=== PATIENT | female | born 1935 | race Caucasian/White ===

== ENCOUNTER 2016-05-06 03:28 | Inpatient (IN) | payer OTHER ==
[~2016-05-06] VITALS: Ht 160 cm; Wt 61.7 kg
[2016-05-06] MEDS ORDERED: METHIMAZOLE5 M1 PO (09:29)
[2016-05-06] MEDS ORDERED: IRBESARTAN300 M1 PO (09:31)
[2016-05-06] MEDS ORDERED: ASPIRIN EC325 M2 PO (10:31)
[2016-05-06] MEDS ORDERED: MIRALAX17 G1 PO (10:31)
[2016-05-06] MEDS ORDERED: PRILOSEC OTC20 M1 PO (10:31)
[2016-05-06] MEDS ORDERED: COLACE100 M1 PO (10:31)
[2016-05-06] MEDS ORDERED: DILAUDID2 M1 PO (10:31)
--- NOTE | 2016-05-06 10:34 | Patient Discharge Instructions ---
Discharge Instructions General Discharge Information You were seen/treated for: Right hip pain You had these procedures: Right total hip replacement Watch for these problems: Increasing pain, redness, warmth, swelling. Drainage of any type from incision. Inability to bear weight on right leg. Do not soak the wound: Yes No bath, but you may shower: Yes Special Instructions: Incision: Dry dressing. May shower. No baths. No ointments of any kind. Ice as needed. Bowel regimen: Colace and or MiraLAX Weight-bearing as tolerated Follow-up with Dr. Guzman in 6 weeks. Call office for fevers greater than 101.5, excessive drainage or inability to bear weight on operative extremity. Visiting nurse will change dressing. Diet Continue normal diet: Yes Recommended Diet: Heart Healthy Additional DIET Information: Advance as tolerated Activity Full Activity/No Limits: No Activity Self Limited: Yes Pounds, do NOT lift more than: 10 Additional ACTIVITY Info: Weight-bear as tolerated on right leg Acute Coronary Syndrome Inclusion Criteria At DC or during hospital stay patient has or had the following: ACS DIAGNOSIS No Discharge Core Measures Meds if any: Prescribed or Continued at Discharge Meds if any: NOT Prescribed or Continued at Discharge Congestive Heart Failure Inclusion Criteria At DC or during hospital stay patient has or had the following: CHF DIAGNOSIS No Discharge Core Measures Meds if any: Prescribed or Continued at Discharge Meds if any: NOT Prescribed or Continued at Discharge Cerebrovascular accident Inclusion Criteria At DC or during hospital stay patient has or had the following: CVA/TIA Diagnosis No Discharge Core Measures Meds if any: Prescribed or Continued at Discharge Meds if any: NOT Prescribed or Continued at Discharge Venous thromboembolism Inclusion Criteria VTE Diagnosis No VTE Type NONE VTE Confirmed by (Test) NONE Discharge Core Measures - Per Current guidelines, there needs to be overlap - treatment for the first 5 days of Warfarin therapy. - If discharged on Warfarin prior to 5 days of - overlap therapy, the patient will need to be - assessed for post discharge needs including - *Post discharge parental anticoagulation - *Warfarin and/or parental anticoagulation education - *Follow up date to check INR post discharge At least 5 days overlap therapy as Inpatient No Meds if any: Prescribed or Continued at Discharge Note: Overlap Therapy is Warfarin and Anticoagulant Meds if any: NOT Prescribed or Continued at Discharge
--- NOTE | 2016-05-06 10:35 | Admission Core Measures ---
Admission Meds I reviewed the following Meds: Current Medications Sig/Maite Start time Last Medication Dose Stop Time Status Admin Acetaminophen 975 MG ONCE 05/06 0000 NR (Tylenol) 05/06 2358 Cefazolin Sodium 2,000 MG ONCE 05/06 NR (Kefzol-Ancef Inj) 05/06 2358 Losartan Potassium 100 MG DAILY 05/07 1000 UNVr (Cozaar) Methimazole 5 MG .[3 X A WEEK] 05/07 1000 UNVr (Tapazole 5 MG Tablet) Oxycodone HCl 10 MG ONCE 05/06 0000 NR (Roxicodone) 05/06 2358 Acute Coronary Syndrome Inclusion Criteria ACS Diagnosis No Inpatient Core Measures LDL Reminder: If No, please order W/I first 24hr of stay Congestive Heart Failure Inclusion Criteria CHF Diagnosis No Cerebrovascular accident Inclusion Criteria CVA/TIA Diagnosis No Inpatient Core Measures Bedside Swallow Eval Reminder: If BSE failed, place ST order Antithrombotic Reminder: Order Antithrombotic Medication by end of day 2 Antithrombotic Reminder: Document Reason Antithrombotic Not ordered by end of day 2 AFIB/Flutter Reminder: If Present, add to problem list AFIB/Flutter Reminder: Order Anticoag Medication for pts with AFIB/Flutter Atherosclerosis Reminder: If Present, add to problem list LDL Reminder: If No, please order W/I first 24hr of stay PT Order Reminder: If No, please order Venous thromboembolism Inpatient Core Measures VTE Risk Factors: Age > 40, Surgery VTE Prophylaxis Ordered Inpt Mech & Pharm No Mech VTE prophylaxis d/t No contraindications No VTE Pharm Prophylaxis d/t No contraindications Inclusion Criteria - Per Current guidelines, there needs to be overlap - treatment for the first 5 days of Warfarin therapy. - Parenteral Anticoagulation (IV or SC) needs to be - given along with Warfarin therapy. VTE Diagnosis No VTE Type NONE VTE Confirmed by (Test) NONE Problem List As ranked by this Provider includes Assessment & Plan 1. Unilateral primary osteoarthritis, right hip HOME MEDS Home Med List Aspirin (Ecotrin*) 325 MG TABLET.DR 1 TAB PO BID ANTICOAGULATION Docusate Sodium (Colace) 100 MG CAPSULE 1 CAP PO BID CONSTIPATION Hydromorphone HCl (Dilaudid) 2 MG TABLET 1-2 TAB PO Q4-6H PRN PAIN Irbesartan 300 MG TABLET 1 300MG PO 8AM HYPERTENSION (Reported) Methimazole 5 MG TABLET 1 PO 3 X A WEEK HYPOTHROID (Reported) Omeprazole Magnesium (Prilosec Otc) 20 MG TABLET.DR 1 TAB PO DAILY GI PROTECTION Polyethylene Glycol 3350 (Miralax) 17 GRAM POWD.PACK 1 PAC PO DAILY CONSTIPATION
--- NOTE | 2016-05-06 10:41 | Surgical Discharge Summary ---
Visit Information Visit Dates Admission Date: 05/06/16 Discharge Date: 05/08/2016 History of Present Illness Chief Complaint: Right hip pain Surgical History Pertinent Surgical History: non-contributory Review of Systems: See H&P Hospital Course Course Attending Physician: JARETH NGO MD Primary Care Physician: AUNG CARTER MD Hospital Course: Patient was admitted to the hospital on 05/06/2016 for an elective right total hip replacement. She tolerated the procedure well. She was transferred to a general surgical floor. Her diet was advanced and tolerated. Her vital signs were stable and within normal limits. She voided spontaneously. Her pain was well controlled. She was evaluated and treated by physical therapy. She was deemed appropriate for discharge to home with home health services. Allergies: Coded Allergies: aspirin (BLEEDING 05/01/16) Disposition Summary Disposition Principal Diagnosis: Right hip unilateral primary osteoarthritis Additional Diagnosis: None Discharge Disposition: home health services Discharge Instructions General Discharge Information Code Status: Full Code Patient's Diet: Heart healthy, advance as tolerated Patient's Activity: Weight-bear as tolerated on right leg Follow-Up Instructions/Appts: Incision: Dry dressing. May shower. No baths. No ointments of any kind. Ice as needed. Bowel regimen: Colace and or MiraLAX Weight-bearing as tolerated Follow-up with Dr. Ngo in 6 weeks. Call office for fevers greater than 101.5, excessive drainage or inability to bear weight on operative extremity. Visiting nurse will change dressing. Medications at Discharge Discharge Medications: Continue taking these medications: Methimazole (Methimazole) 5 MG TABLET 1 ORAL 3 X A WEEK Irbesartan (Irbesartan) 300 MG TABLET 1 300MG ORAL DAILY @8AM Start taking the following new medications: Hydromorphone HCl (Dilaudid) 2 MG TABLET 1-2 Tablet ORAL Q4-6H as needed for PAIN Qty = 36 No Refills Polyethylene Glycol 3350 (Miralax) 17 GRAM POWD.PACK 1 Packet ORAL DAILY Qty = 7 No Refills Instructions: dissolve in water, DISCONTINUE USE IF YOU DEVELOP LOOSE STOOL OR DIARRHEA Docusate Sodium (Colace) 100 MG CAPSULE 1 Capsule ORAL TWICE DAILY Qty = 14 No Refills Instructions: DISCONTINUE USE IF YOU DEVELOP LOOSE STOOL OR DIARRHEA Omeprazole Magnesium (Prilosec Otc) 20 MG TABLET.DR 1 Tablet ORAL DAILY Qty = 30 No Refills Apixaban (Eliquis) 2.5 MG TABLET 1 Tablet ORAL TWICE DAILY Qty = 60 No Refills
[2016-05-06] MEDS ORDERED: ELIQUIS2.5 M1 PO (11:26)
--- NOTE | 2016-05-06 13:47 | RADIOLOGY REPORT ---
EXAMINATION: XR HIP, RIGHT CLINICAL INFORMATION: Status post right THR. COMPARISON: None TECHNIQUE: AP and crosstable lateral views of the right hip. FINDINGS: Prosthetic components of the right total hip arthroplasty are appropriately aligned. No periprosthetic fracture. Gas from recent surgery is present in the surrounding soft tissues. Drainage tube is in place. IMPRESSION: Normal postoperative appearance of the right total hip prosthesis.
--- NOTE | 2016-05-06 14:26 | PN- Orthopedic ---
Subjective Subjective: Post op check Awake, alert post op No nausea, pain well controlled right now Has not seen PT yet Hernández being Objective Vital Signs and I&Os VSS, afebrile Physical Exam: No voiding yet after hernández removal Suretrans drain: 100cc serosang fluid post op General: alert and oriented times three chest: clear anteriorly bilaterally, RRR Abd: soft, good bs Ext: warm, no edema, positive sensate, good strength 5/5 RLE Wound: dressed, dry, ice pack in place Assessment/Plan Assessment/Plan 80 yo female s/p R THR pain mgmt await void PT - WBAT eliquis for dvt ppx teds/alps for dvt ppx abx - 24 hrs post op Core Measures/Miscellaneous Venous Thromboembolism VTE Risk Factors: Age > 40, Surgery VTE Contraindications: No Contraindications VTE Prophylaxis Ordered Inpt: Mech & Pharm VTE Diagnosis: No VTE Type: NONE VTE Confirmed by (Test): NONE Beta Orin Is Beta Orin a Home Med? No Antibiotics Is Patient on Antibiotics? Yes If Yes: prophylaxis (24 hrs post op)
[2016-05-06 14:45] VITALS: BP 140/60
--- NOTE | 2016-05-06 15:49 | NUR ---
PT ARRIVED TO FLOOR 1443 VIA STRETCHER FROM PACU. REPORT TAKEN FROM EZEQUIEL SNEED. PT DROWSY/AROUSABLE. PAIN 04/19. VSS- BP 140/60, TEMP 97.5, RR 16, 94% RA, PULSE 62. ORIENTED TO ROOM AND CALL [place] IN REACH. WILL MONITOR.
--- NOTE | 2016-05-06 16:39 | Operative Report ---
Operative/Inv Procedure Report Surgery Date: 05/06/16 Name of Procedure: Right total hip replacement Pre-Operative Diagnosis: Primary right hip DJD Post-Operative Diagnosis: Same Estimated Blood Loss: 350 Surgeon/Interpretative Dancer: JARETH NGO MD Anesthesia: general endotracheal tube Operative/Procedure Note Note: Description of Procedure: The patient was taken to the operating room and positively identified. After induction of spinal anesthesia and administration of appropriate pre-operative antibiotics, the patient was positioned supine on the operating room table and all bony prominences were well padded. After performing a surgical timeout, the right lower extremity was prepped and draped in the usual sterile fashion. A direct anterior approach was made to the right hip. The incision was carried sharply through superficial soft tissues to the level of the fascia. Meticulous hemostasis was maintained with Bovie electocautery. The fascia over the tensor fascia thuan muscle was opened sharply and the interval between the TFL and the sartorius was entered bluntly taking care to stay lateral to the lateral femoral cutaneous nerve. Retractors were placed around the femoral neck and the pericapsular fat was identified. The ascending branches of the lateral femoral circumflex vessels were identified and carefully coagulated. The pericapsular fat and anterior capsule were then resected. A napkin ring osteotomy was performed and the femoral head was removed without difficulty. Attention was then turned to the acetabulum. After appropriate placement of retractors, the acetabulum was exposed. Soft tissue was cleaned from the acetabular margin and notch. Overhanging osteophytes were removed and the teardrop was exposed. The acetabulum was then sequentially reamed to accept a 58 mm Clifton Tritanium hemispherical solid back shell. This was impacted into place in the appropriate position and fitted with a 36 mm Trident X3 zero degree polyethylene insert. Attention was then turned to the femur. After performing the appropriate ligament releases, the proximal femur was exposed. It was then sequentially broached to accept a size 5 Clifton accolade 2 stem. This was trialed for leg length and stability. The trial component was removed and the final component was impacted into place. The trunnion was carefully cleaned and fit with a 36 mm, +0 Biolox delta ceramic femoral head. The hip was reduced and put through a full range of motion and found to be stable. The articular space was then irrigated with sterile saline. The periarticular soft tissues were infilitrated with Marcaine. A medium Hemovac drain was left in the intra-articular space. The fascial layer was closed with interrupted #1 vicryl suture and the skin was re-approximated with interrupted 2-0 vicryl. The skin was closed with a running 3-0 V-Lock suture. Steri-strips and a sterile dressing were applied. The patient was awakened and taken to the recovery room in satisfactory condition.
[2016-05-06 17:49] VITALS: BP 150/76
[2016-05-06 19:42] VITALS: BP 128/58
[2016-05-06 21:26] VITALS: BP 118/50
--- NOTE | 2016-05-07 01:00 | NUR ---
05/06/16 AT 0100, PATIENT VOMITED SMALL AMOUNT OF FOOD CONTENT. PATIENT HAD GENERAL ANESTHESIA PREVIOUSLY FOR RIGHT HIP SURGERY. PATIENT STATED SHE NO LONGER FEELS NAUSEOUS OR URGE TO VOMIT AT THIS TIME . PATIENT DENIES PAIN. + BOWEL SOUNDS. NO ABD TENDERNESS. ABD SOFT NON DISTENDED. SURGICAL COCO LESLIE NOTIFIED. PATIENT RESTING COMFORTABLY IN BED. WILL CONTINUE TO MONITOR.
[2016-05-07 01:38] VITALS: BP 112/52
[2016-05-07 07:32] VITALS: BP 110/52
--- NOTE | 2016-05-07 08:27 | PN- Orthopedic ---
Subjective Subjective: The patient was seen this morning postoperatively day #1. She reports that her pain is under adequate control however she didn't expect this much pain. She had no other complaints at the current time. Objective Vital Signs and I&Os Vital Signs Date Time Temp Pulse Resp B/P Pulse O2 O2 Flow FiO2 Ox Delivery Rate 05/07 0732 98.0 83 20 110/52 96 Room Air 05/07 0138 98.0 82 20 112/52 96 Room Air 05/06 2126 98.5 93 20 118/50 96 Room Air 05/06 1942 97.7 85 20 128/58 94 Room Air 05/06 1749 98.0 86 20 150/76 97 Room Air 05/06 1445 97.5 62 16 140/60 94 Room Air Intake & Output 05/07 1600 05/07 0800 05/07 0000 05/06 1600 05/06 0800 05/06 0000 Intake Total 1000 1045 Output Total 58 200 Balance 942 845 Intake, IV 600 525 Intake, Oral 400 520 Number 0 Bowel Movements Output, 58 200 Drainage Output, Urine 0 Patient 136 lb Weight Physical Exam: Gen.: Alert and in no obvious distress Skin: Warm and dry Extremities: Bilateral lower extremities were warm without calf tenderness or significant edema. Gross motor and sensory were intact. Left hip surgical dressing was clean, dry, and intact. There was a Suretrans drain 1 holding suction with serosanguineous drainage in the canister and some mild bloody drainage around the drain. Assessment/Plan Assessment/Plan Assessment: 80-year-old female status post right total hip arthroplasty postoperative day 1. The patient is progressing as expected and her pain is under adequate control. Plan: Hep-Lock IV fluids Follow-up morning laboratory studies Continue current pain regiment Out of bed with physical therapy patient is weightbearing as tolerated DC Suretrans drain GI and DVT prophylaxis Begin eliquis bid first dose this morning First surgical dressing change tomorrow Core Measures/Miscellaneous Venous Thromboembolism VTE Risk Factors: Age > 40, Surgery VTE Contraindications: No Contraindications VTE Prophylaxis Ordered Inpt: Mech & Pharm VTE Diagnosis: No VTE Type: NONE VTE Confirmed by (Test): NONE Beta Orin Is Beta Orin a Home Med? No Antibiotics Is Patient on Antibiotics? No
[2016-05-07 08:44] LABS: ABSOLUTE BASOPHIL COUNT 0 /CUMM (0.0-0.2); ABSOLUTE EOSINOPHIL COUNT 0 /CUMM (0.0-0.7); ABSOLUTE GRANULOCYTE CT 6.7 /CUMM (1.4-6.5); ABSOLUTE LYMPH COUNT 1.2 /CUMM (1.2-3.4); ABSOLUTE MONOCYTE COUNT 0.9 /CUMM (0.10-0.60); BASOPHIL % 0.1 % (0.0-2.0); EOSINOPHIL % 0.1 % (0-5); GRANULOCYTE % 75.4 % (42.2-75.2); HEMATOCRIT 26.8 % (37-47); MEAN CORPUSCULAR HGB CONC 33.5 G/DL (33.0-37.0); MEAN CORPUSCULAR VOLUME 89.6 FL (81.0-99.0); MEAN PLATELET VOLUME 9.4 FL (7.4-10.4); PLATELET COUNT 189 /CUMM (130-400); RBC DISTRIBUTION WIDTH 12.4 % (11.5-14.5); RED BLOOD CELL CT 2.99 /CUMM (4.20-5.40); WHITE BLOOD CELL COUNT 8.9 /CUMM (4.8-10.8)
[2016-05-07 08:57] VITALS: BP 120/80
[2016-05-07 14:02] VITALS: BP 118/60
[2016-05-07 22:39] VITALS: BP 126/54
[2016-05-08 06:30] VITALS: BP 130/62
--- NOTE | 2016-05-08 07:32 | PN- Orthopedic ---
Subjective Subjective: POD#2 S/P RIGHT BROOKS DOING WELL NO MAJOR COMPLAINTS AT THIS TIME DENEIS CP, SOB, NO N+V WITH DIET AMBULATING WITH PT Objective Vital Signs and I&Os Vital Signs Date Time Temp Pulse Resp B/P Pulse O2 O2 Flow FiO2 Ox Delivery Rate 03/ 0630 99.5 79 18 130/62 95 Room Air 05/07 2239 99.0 82 20 126/54 95 05/07 1402 97.5 64 20 118/60 92 Room Air 05/07 0936 80 116/62 05/07 0857 99.3 79 18 120/80 96 Room Air 05/07 0732 98.0 83 20 110/52 96 Room Air Intake & Output 05/08 0800 05/08 0000 05/07 1600 05/07 0800 05/07 0000 05/06 1600 Intake Total 120 016 213 8337 1045 Output Total 300 650 358 200 Balance 120 -100 50 642 845 Intake, IV 600 525 Intake, Oral 120 200 700 400 520 Number 0 Bowel Movements Output, 58 200 Drainage Output, Urine 300 650 300 0 Patient 136 lb Weight Physical Exam: CV: RRR LUNGS: CLEAR ABD: +BS, NT/ND EXT: DRSG CHANGED, WOUND CD/I NO CALF TENDERNESS BILAT DISTAL CMS INTACT Assessment/Plan Assessment/Plan ORTHO STABLE PLAN CONT OOB WITH PT/STAIRS [id number] FOR DVT PROPHYLAXIS HOME D/C P;ANNING TODAY Core Measures/Miscellaneous Venous Thromboembolism VTE Risk Factors: Age > 40, Surgery VTE Contraindications: No Contraindications VTE Prophylaxis Ordered Inpt: Mech & Pharm VTE Diagnosis: No VTE Type: NONE VTE Confirmed by (Test): NONE Beta Orin Is Beta Orin a Home Med? No Antibiotics Is Patient on Antibiotics? No
[2016-05-08 09:31] VITALS: BP 130/62
== END 2016-05-08 14:26 | disposition home health service (06) | DRG 470 ==
LOC: ENRESERVDT → ENRESERVTM → 2NA 03:28 → ENPENDDIS 03:28 → SDA 03:28 → 2NA 14:42
PROVIDERS: Nurse Practitioner; ADMIT Orthopaedic Surgery
PROC: 0SR904A Replacement of Right Hip Joint with Ceramic on Polyethylene Synthetic Substitute, Uncemented, Open Approach (ICD-10-PCS; principal; 2016-05-06)
DX: M16.11 Unilateral primary osteoarthritis, right hip (principal); E05.90 Thyrotoxicosis, unspecified without thyrotoxic crisis or storm; I10 Essential (primary) hypertension
CPT/HCPCS: 2NASP; 36415; 73502-RT; 82436; 88304; 97110-GO; 97116-GO; 97161-GP; 97530-GO; J0690; J0735; J2405; J2550; J7042